=== PATIENT | female | born 1955 | race African-American/Black ===

== ENCOUNTER 2021-01-31 15:02 | Inpatient (IN) | payer MEDICARE, MEDICAID ==
[~2021-01-31] VITALS: Ht 162.6 cm; Wt 135.2 kg
[2021-01-31] MEDS ORDERED: AZITHROMYCIN 500 MG in DEXT 5% WATER 250 ML IV STA (15:25)
[2021-01-31] MEDS ORDERED: DEXAMETHASONE 10 MG/ML VIAL IV ONE (15:30)
[2021-01-31 16:09] LABS: BASOPHILS % 0.4 % (0.0-2.0); EOSINOPHILS % 0.1 % (0.0-5.0); HEMATOCRIT. 42.5 % (36.0-48.0); HEMOGLOBIN. 14.3 g/dL (12.0-16.0); LYMPHOCYTES % 30.4 % (20.0-50.0); MEAN CORPUSCULAR HEMOGLOBIN 29.7 pg (28.0-32.0); MEAN CORPUSCULAR VOLUME 88.4 fL (81.0-99.0); MEAN PLATELET VOLUME 8.6 fl (7.4-10.4); MONOCYTES % 8.2 % (2.0-8.0); NEUTROPHILS % 60.9 % (40.0-76.0); PLATELET 225 x1000/uL (130-400); RED BLOOD CELL COUNT 4.81 mill/uL (4.2-5.4); RED CELL DISTRIBUTION WIDTH 14.1 % (11.6-14.6)
[2021-01-31 16:13] LABS: CHLORIDE 109 mEq/L (98-107)
[2021-01-31 16:20] LABS: D-DIMER 1.59 mg/L FEU (<0.50)
[2021-01-31 16:24] LABS: CREATINE KINASE 151 IU/L (26-192)
[2021-01-31 21:37] VITALS: BP 177/88
[2021-01-31] MEDS ORDERED: NIFE30TA94 PO (22:50)
[2021-01-31] MEDS ORDERED: ALPR2TAB97 (22:50)
[2021-01-31] MEDS ORDERED: HYDR-4009 PO (22:50)
[2021-01-31] MEDS ORDERED: HYDROCODONE/ACETAMINOPHEN 5/325MG TABLET PO PRN (23:00)
[2021-01-31] MEDS ORDERED: CLONIDINE 0.1MG TABLET PO PRN ×2 (23:00→23:15)
[2021-01-31] MEDS: ALPRAZOLAM 0.5 MG TABLET PO PRN (23:25)
[2021-01-31] MEDS ORDERED: NALOXONE HCL 0.4MG/ML VIAL IV PRN (23:30)
[2021-01-31 23:33] VITALS: BP 177/88
[2021-02-01] VITALS: BP 124/67
[2021-02-01 04:00] VITALS: BP 98/67
[2021-02-01] MEDS: LEVOFLOXACIN 500MG PREMIX 100 ML IV SCH (04:02)
[2021-02-01 07:40] LABS: HEMOGLOBIN. 13.6 g/dL (12.0-16.0); MEAN CORPUSCULAR HEMOGLOBIN 29.4 pg (28.0-32.0); MEAN CORPUSCULAR VOLUME 88.9 fL (81.0-99.0); MEAN PLATELET VOLUME 8.9 fl (7.4-10.4); PLATELET 237 x1000/uL (130-400); RED BLOOD CELL COUNT 4.62 mill/uL (4.2-5.4); RED CELL DISTRIBUTION WIDTH 13.7 % (11.6-14.6)
[2021-02-01 07:47] LABS: CHLORIDE 110 mEq/L (98-107)
[2021-02-01 08:00] VITALS: BP 125/71
[2021-02-01] MEDS: PANTOPRAZOLE 40MG DR TABLET PO SCH (08:55)
[2021-02-01] MEDS: NIFEDIPINE XL 30MG TAB PO SCH (08:55)
[2021-02-01] MEDS: ENOXAPARIN 30MG/0.3ML SYR SUBCUT SCH ×2 (08:55→20:59)
[2021-02-01] MEDS: DEXAMETHASONE 4MG/ML 1ML VIAL IV SCH (08:56)
[2021-02-01] MEDS ORDERED: CEFTRIAXONE SODIUM 1 G/VIAL IM ONE (09:00)
[2021-02-01] MEDS ORDERED: ALPR2TAB2 MT (10:56)
[2021-02-01] MEDS ORDERED: TAMO20TA4 MT (11:08)
[2021-02-01] MEDS ORDERED: HYDR-4009 MT (11:08)
[2021-02-01] MEDS ORDERED: TRIA15CR61 TP (11:08)
[2021-02-01] MEDS ORDERED: GABA-532 MT (11:08)
[2021-02-01 12:00] VITALS: BP 123/72
[2021-02-01] MEDS ORDERED: AZITHROMYCIN 500 MG in DEXT 5% WATER 250 ML IV SCH (14:00)
[2021-02-01] MEDS ORDERED: ALPRAZOLAM 0.5 MG TABLET PO SCH (15:00)
[2021-02-01 16:00] VITALS: BP 125/67
[2021-02-01] MEDS ORDERED: TAMOXIFEN 10MG TABLET PO SCH (17:00)
[2021-02-01] MEDS ORDERED: TRIAMCINOLONE ACETONIDE 0.5% CREAM 15GM TOP PRN (17:00)
[2021-02-01] MEDS: GABAPENTIN 300MG CAPSULE PO SCH (18:12)
[2021-02-01 20:00] VITALS: BP 111/55
[2021-02-01 20:53] LABS: PLATELET ESTIMATE NORMAL
[2021-02-01] MEDS: ALPRAZOLAM 0.5 MG TABLET PO PRN (20:59)
[2021-02-02] VITALS: BP 114/60
[2021-02-02] MEDS: LEVOFLOXACIN 500MG PREMIX 100 ML IV SCH (00:20)
[2021-02-02 04:00] VITALS: BP 120/60
[2021-02-02 06:58] LABS: BASOPHILS % 0.1 % (0.0-2.0); HEMOGLOBIN. 14.3 g/dL (12.0-16.0); LYMPHOCYTES % 16.3 % (20.0-50.0); MEAN CORPUSCULAR HEMOGLOBIN 29.6 pg (28.0-32.0); MEAN CORPUSCULAR VOLUME 88.8 fL (81.0-99.0); MEAN PLATELET VOLUME 8.9 fl (7.4-10.4); MONOCYTES % 11.6 % (2.0-8.0); PLATELET 283 x1000/uL (130-400); RED BLOOD CELL COUNT 4.85 mill/uL (4.2-5.4)
[2021-02-02 07:13] LABS: CHLORIDE 111 mEq/L (98-107)
[2021-02-02 08:00] VITALS: BP 113/70
[2021-02-02] MEDS: GABAPENTIN 300MG CAPSULE PO SCH ×3 (08:53→16:35)
[2021-02-02] MEDS: ENOXAPARIN 30MG/0.3ML SYR SUBCUT SCH (08:54)
[2021-02-02] MEDS: PANTOPRAZOLE 40MG DR TABLET PO SCH (08:54)
[2021-02-02] MEDS: DEXAMETHASONE 4MG/ML 1ML VIAL IV SCH (08:54)
[2021-02-02] MEDS: NIFEDIPINE XL 30MG TAB PO SCH (08:56)
[2021-02-02 12:00] VITALS: BP 133/55
[2021-02-02] MEDS: AZITHROMYCIN 500 MG TABLET PO SCH (13:08)
[2021-02-02] MEDS: TAMOXIFEN 10MG TABLET PO SCH (13:08)
[2021-02-02 16:00] VITALS: BP 112/56
[2021-02-02 20:00] VITALS: BP 110/59
[2021-02-02] MEDS: ENOXAPARIN 40MG/0.4ML SYR SUBCUT SCH (20:52)
[2021-02-03] VITALS: BP 136/51
[2021-02-03 04:00] VITALS: BP 125/69
[2021-02-03] MEDS ORDERED: LEVOFLOXACIN 500MG TABLET PO SCH (06:00)
[2021-02-03 07:06] LABS: CLARITY URINE CLEAR (CLEAR); COLOR URINE YELLOW (YELLOW); KETONES URINE NEGATIVE (NEGATIVE); LEUKOCYTE ESTERASE URINE NEGATIVE (NEGATIVE); NITRITE URINE NEGATIVE (NEGATIVE); OCCULT BLOOD URINE NEGATIVE (NEGATIVE); PROTEIN URINE NEGATIVE (NEGATIVE); SPECIFIC GRAVITY URINE 1.014 (1.005-1.030); UROBILINOGEN URINE 0.2 E.U./dL (0.2-1.0)
[2021-02-03 08:00] VITALS: BP 98/51
[2021-02-03] MEDS: NIFEDIPINE XL 30MG TAB PO SCH (08:53)
[2021-02-03] MEDS: ENOXAPARIN 40MG/0.4ML SYR SUBCUT SCH (09:00)
[2021-02-03] MEDS: GABAPENTIN 300MG CAPSULE PO SCH ×3 (09:00→16:41)
[2021-02-03] MEDS: FAMOTIDINE 20MG TABLET PO SCH ×2 (09:00→16:41)
[2021-02-03] MEDS: TAMOXIFEN 10MG TABLET PO SCH (09:00)
[2021-02-03] MEDS ORDERED: DEXAMETHASONE 10 MG/ML VIAL IV SCH (09:00)
[2021-02-03 12:00] VITALS: BP 110/55
[2021-02-03] MEDS: AZITHROMYCIN 500 MG TABLET PO SCH (13:40)
[2021-02-03 16:00] VITALS: BP 115/61
[2021-02-03] MEDS ORDERED: DEXA6TAB MT (16:59)
[2021-02-03] MEDS ORDERED: PANT40TA51 MT (16:59)
[2021-02-03] MEDS ORDERED: ASPI-1406 MT (16:59)
[2021-02-03 17:08] VITALS: BP 115/51
== END 2021-02-03 18:30 | disposition home health service (06) | DRG 720 ==
LOC: ER 15:02 → MICUSO 18:18 → EDBEDREQTM 18:31 → EDBEDREQ 18:31 → 7WST 20:33
PROVIDERS: ADMIT Internal Medicine; ATTEND Internal Medicine
DX: A41.89 Other specified sepsis (principal); U07.1 COVID-19; J96.00 Acute respiratory failure, unspecified whether with hypoxia or hypercapnia; J12.82 Pneumonia due to coronavirus disease 2019; I10 Essential (primary) hypertension; E66.01 Morbid (severe) obesity due to excess calories; C50.911 Malignant neoplasm of unspecified site of right female breast; C50.912 Malignant neoplasm of unspecified site of left female breast; Z85.3 Personal history of malignant neoplasm of breast; Z68.42 Body mass index [BMI] 45.0-49.9, adult; Z82.49 Family history of ischemic heart disease and other diseases of the circulatory system; Z79.891 Long term (current) use of opiate analgesic; Z79.899 Other long term (current) drug therapy; Z68.43 Body mass index [BMI] 50.0-59.9, adult; Z88.0 Allergy status to penicillin; D89.839 Cytokine release syndrome, grade unspecified; Z71.3 Dietary counseling and surveillance
CPT/HCPCS: 36415; 71045; 80048; 80053; 81003; 82550; 82728; 83605; 83615; 83880; 84145; 84484; 85025; 85379; 85384; 86140; 87426; 93005; 99291; J0456; J1100; J1650; J1956; J7040; J7060; U0003; U0005